=== PATIENT | male | born 1980 | race Hispanic/Latino ===

== ENCOUNTER 2020-01-10 20:53 | Emergency (ER) | payer SELFPAY ==
[2020-01-10] MEDS ORDERED: Fluorescein Opthalmic Strip ONE (22:20)
[2020-01-10] MEDS ORDERED: Proparacaine 0.5% Opth 15 ML BOT ONE (22:20)
== END 2020-01-10 23:23 | disposition home or self-care (01) ==
LOC: ERS 20:53
DX: H10.9 Unspecified conjunctivitis (principal)
CPT/HCPCS: 99283

== ENCOUNTER 2022-06-30 14:31 | Emergency (ER) | payer OTHER, SELFPAY | END 2022-06-30 15:30 | disposition home or self-care (01) | LOC: ERS 14:31 | DX: M79.675 Pain in left toe(s) (principal); I10 Essential (primary) hypertension; Z87.891 Personal history of nicotine dependence; Z79.899 Other long term (current) drug therapy ==

== ENCOUNTER 2024-07-07 19:08 | Emergency (ER) | payer SELFPAY ==
[2024-07-07] MEDS ORDERED: Ketorolac Tromethamine 30 MG (1 mL) VIAL ONE (20:37)
== END 2024-07-07 21:07 | disposition home or self-care (01) ==
LOC: ERS 19:08
DX: S93.402A Sprain of unspecified ligament of left ankle, initial encounter (principal); I10 Essential (primary) hypertension; F17.290 Nicotine dependence, other tobacco product, uncomplicated; Z79.899 Other long term (current) drug therapy; X50.1XXA Overexertion from prolonged static or awkward postures, initial encounter; Y93.01 Activity, walking, marching and hiking
CPT/HCPCS: 96372; 99283; J1885